=== PATIENT | female | born 1985 | race Caucasian/White ===

== ENCOUNTER 2023-03-31 09:31 | Emergency (ER) | payer OTHER, SELFPAY ==
[2023-03-31 09:32] VITALS: PULSE 82; RESP 16; TEMP 36.3; O2SAT 98; BMI 23.3
--- NOTE | 2023-03-31 09:41 | RAD_ITS ---
EXAM: XR LEFT FOOT COMPLETE, 3 OR MORE VIEWS CLINICAL INDICATION: injury pain swelling TECHNIQUE: Frontal, lateral and oblique views of the left foot. COMPARISON: No relevant prior studies available. FINDINGS: BONES/JOINTS: Acute fracture at the base of the fifth metatarsal. Preservation of the joint space. No sclerotic or destructive changes observed. SOFT TISSUES: Unremarkable. No soft tissue swelling or gas. No radiopaque foreign body. RAD/Foot min 3 Views IMPRESSION: Acute fracture at the base of the left fifth metatarsal. Electronically Signed: Orville Farley MD at 9:53 EST ,
--- NOTE | 2023-03-31 09:58 | EDS_ITS ---
HPI History of Present Illness Chief Complaint: Lower Extremity Injury Detail of Chief Complaint: Injury lateral aspect of left foot Informant: patient Occured/Mechanism Mechanism/Context: Yes injury and Yes blunt trauma Comment: Patient rolled her foot and felt a snap and pop. She was unable to bear weight. Onset/Context/Timing Onset: Hours Context: Sudden Onset Timing: Continuous Quality of Pain: Dull and Throbbing Location: Over the fifth metatarsal left foot Current Severity: Mild Maximum Severity: Severe Worsened by: Weightbearing Relieved by: Nothing Associated Symptoms Associated Symptoms: Positive for Loss of Funtion Narrative Narrative: Patient is a 38-year-old woman who was rushing down the steps because her children wanted open presents. She rolled her foot. She felt a snap pop and had severe pain. She is unable to bear weight. She denies paresthesia, anesthesia motors. She denies prior injury. She has not seen podiatry in the area. Prior similar symptoms: No Recent Illness/Hospitalization: No PFSH PFSH Medical History no medical history no medical history Home Medications hydrocodone-acetaminophen 5-325mg 5mg-325mg 1 tab PO Q6H PRN PRN Pain 3 days #10 TABLETS 03/31/23 [Rx Last Taken Unknown] Allergy/AdvReac Type Severity Reaction Status Date / Time No Known Allergies Allergy Verified 03/31/23 09:32 Surgical History History of Social History (Updated 03/31/23 @ 10:[address] Amrit Moore MD) household members: spouse and children Smoking Status: Never smoker ROS ROS ED Musculoskeletal Musculoskeletal: Reports other Details: Per HPI narrative ; Denies arthralgias, back pain, myalgias or neck pain Integumentary Denies Abrasions or rash Neurologic Neurologic: Reports paresthesias; Denies weakness Hematologic/Lymphatic Hematologic/Lymphatic: Denies easy bleeding Allergic/Immunologic Allergic/Immunologic ED: Denies mouth swelling or tongue swelling EXAM Physical Exam Const Vital Signs: 03/31/23 09:32 Temperature 97.4 F L Temperature Source Temporal Pulse Rate 82 Respiratory Rate 16 Pulse Ox 98 Oxygen Delivery Method Room Air Positive well nourished and well developed General Appearance ED: well developed and NAD HEENT Reports moist mucous membranes normocephalic and atraumatic Eyes PERRL Resp normal respiratory effort Cardio regular rate and regular rhythm Extremity full ROM; Negative for normal to inspection Extremity Narrative: There is swelling discoloration over the base of the fifth metatarsal. There is no pain ovation over the lateral or medial malleolus. There is no pain ovation over the calcaneus. There is no pain the patient over the phalanges or first through fourth metatarsal. DP pulses palpable. Neuro oriented x3, CN's II-XII intact bilaterally, moves all extremities and no sensory deficits noted Sensorium / Orientation: alert Psych mental status grossly normal Skin no wounds Skin Narrative: There is a bruise noted over the base of the fifth metatarsal. Lesions: no lesions MDM MDM MDM Narrative Medical decision making narrative: Based on history and physical concern patient has a fracture. Need to determine if this is a Box or pseudo Box fracture. Radiography Chest X-Ray - ED: Read by ED Physician (Three-view x-ray of the left foot was obtained per nurse protocol and reveals a comminuted fracture which involves the metaphysis of the fifth metatarsal. There is no displaced fragments.) Diagnostic Testing: Clinical Impression(s) from Imaging Studies Foot X-Ray 03/31/23 09:41 IMPRESSION: Acute fracture at the base of the left fifth metatarsal. Electronically Signed: Orville Farley MD at 9:53 EST , Management Discussion w/another healthcare provider: Clinical Research Coordinator (Spoke with Dr. Perkins on-call for podiatry. He requested posterior splint nonweightbearing. Patient was informed of this.) Treatment and Re-Evaluation Narrative: Podiatry was contacted to discuss case and determine if they requested crutches nonweightbearing with postop shoe versus crutches and weight tolerated with walking boot. Procedures Lower Extremity Splints Lower Extremity Splint: Plaster and - (Posterior short leg splint) Splint Fabrication: Fabricated Location: Left Discharge Plan Triage Chief Complaint: Lower Extremity Injury ED Provider: Amrit Moore Dx/Rx/DC Orders Clinical Impression: Closed comminuted fracture of metatarsal bone Prescriptions: New hydrocodone-acetaminophen [hydrocodone-acetaminophen] 5-325 mg tablet 1 tab PO Q6H PRN PRN (Reason: Pain) 3 Days Qty: 10 0RF Primary Care Provider: Care Physician,No Primary Referrals: Chacho Perkins DPM [Med Staff - Active Staff] - 1 Day Care Physician,No Primary [Primary Care Provider] - Activity Restrictions/Additional Instructions: 1. Elevate your toes above your nose for the next several days 2. Keep splint absolutely clean and dry 3. Apply ice 6-10 times a day 4. Take medication as needed for pain. Do not recommend use of NSAIDs. Disposition Disposition: Home, Self Care
== END 2023-03-31 10:31 | disposition home or self-care (01) ==
PROVIDERS: Emergency Provider Emergency Medicine; Visit Provider Emergency Medicine
DX: S92.355A Nondisplaced fracture of fifth metatarsal bone, left foot, initial encounter for closed fracture (principal); X50.1XXA Overexertion from prolonged static or awkward postures, initial encounter
CPT/HCPCS: 29515; 29505; 73630; 99282

== ENCOUNTER 2023-07-02 08:50 | Outpatient (RCR) | payer OTHER, SELFPAY ==
--- NOTE | 2023-07-02 10:29 | HP.PTEVAL_ITS ---
Patient's Visit Information Visit Information Visit Information: TRE YODER is a 38 year old F referred to Physical Therapy by Dr. Chacho Perkins DPM with a diagnosis of 04/15/23 s/p Left ORIF of displaced comminuted fx 5th met base left fo. Date of Evaluation: 07/02/23 Physical Therapist: Palmira Patton DPT Visit Plan Frequency: 1x/Week Duration: 6 Weeks Plan: 1x a week- Given HEP- Follow up PRN HEP Given: seated ankle ROM, gastroc/soleus stretching with towel, SLS, HR/TR seated and standing, seated heel slide, 1/2 kneel stretch for DF, step stretch- edcuated on heel/toe pattern for ambulation Subjective Subjective: Patient reports that she missed the last step on - broke her 5th met on the left foot- had ORIF of displaced comminuted fractured of the 5th met base left foot- Apr [address] Perkins. She progressed from NWB to WBAT in a CAM walk to WBAT in a shoe. She has been a shoe since the 24 of June. She has been consistently in a tennis shoe for a week. She reports that the pain is getting better and its just really stiff and swollen. Worst in the last few days: 3/10 Agg: being up on it, walking, stairs. End of the day its all done. Best: 0/10 currently no pain. Eases: elevation and ice. Pain is located in the 5th met and on the bottom of the foot. Describes the pain as sharp and shooting. The pain does not radiate up the leg. She does not note any N/T. 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 Patient feels like she is back to 75% of normal activities. Sleep: not disturbed. told her to wear a shoe- no insert in shoe- only goes barefoot at this point when getting in/out of the shower. PMHx/Meds: see list scanned in chart from . No current restrictions. did not give her any exercises for it Objective Objective: Posture: good throughout tx session Gait: slightly antalgic- decreased stance and weight shift to the left LE- with poor heel/toe pattern due to decreased DF Observation: incision healing well no s/s of infection noted Sensation: WFL not tender to touch Edema: Figure 8:49 cm Mets: 21.5 Malls: 25 cm 6 below the patella 32.5 cm Palpation: tender along plantar fascia Flex: Gastroc: moderate, Soleus: mild ROM: DF: neutral, PF: 60 degrees, Inver: 30 degrees Ever: 20 degrees Strength: 4+/5 throughout available range SLS: 15 seconds with increased muscle activation and sway HR/TR: able without pain- decreased TR due to lack of ROM secondary to edema Balance/Special Test Scores Lower Extremity Functional Score: 51 Goals Goal 1:: Patient will report participation in home exercise program activities a minimum of 5 days per week, as adjunct to skilled physical therapy intervention in preparation for independent home management upon discharge. Goal Time Frame: 4-6 Weeks Goal 2:: Patient will ambulate >150 feet with a normalized gait pattern Goal Time Frame: 4-6 Weeks Goal 3:: Patient will report 80% improvement Goal Time Frame: 4-6 Weeks Rehabilitation Potential Physical Therapy Diagnosis: Patient has increased edema and decreased LE ROM, strength/stabilization, proprioception, flexibility and muscular endurance leading to abnormal gait and balance. Rehabilitation Potential: Good Anticipated Interventions Patient/Client Instruction: Educate patient on: Benefits of Fitness Program Therapeutic Exercise to Include: Strength training, Endurance training, Balance training, Coordination, Agility training, Body mechanics, Postural training, Flexibilty training, Gait and locomotor training, Passive ROM, Active ROM, Dynamic Lumbar Stabilization and Scapular Strength/Stabilization Text: Thank you for the opportunity to evaluate your patient. For Medicare and Medicare HMO plans, please review the plan of care and approve it. It will need to be FAXED BACK to us at [phone] for Medicare purposes. For Medicare only, by signing this I certify the plan of care. Please let me know if there are questions or concerns regarding this plan of care. Physician Signature: Date:
--- NOTE | 2023-08-26 11:22 | HP.PT.NRP ---
Patient Information Patient Information: TRE YODER was seen in my office for initial evaluation on 07/02/23. The following Plan of Care was established for this patient: POC Established Initial Frequency: 1x/Week Initial Duration: 6 Weeks Anticipated Interventions Patient/Client Instruction: Educate patient on: Benefits of Fitness Program Therapeutic Exercise to Include: Strength training, Endurance training, Balance training, Coordination, Agility training, Body mechanics, Postural training, Flexibilty training, Gait and locomotor training, Passive ROM, Active ROM, Dynamic Lumbar Stabilization and Scapular Strength/Stabilization Last Seen Last Seen: This patient was last seen in our office . Pertinent comments regarding their Physical therapy will appear below: Patient is independent with home exercise program and appropriate to be d/c from PT At this point I will be discontinuing this patient from physical therapy. I would be happy to see this patient again in the future if found appropriate by the physician. Thank you! Palmira Patton, DPT Balance/Gait/Functional tests Balance/Special Test Scores Lower Extremity Functional Score: 51
== END 2023-07-02 19:00 | disposition home or self-care (01) ==
LOC: PT 08:50
PROVIDERS: PCP Family Medicine; Referring Provider Student in an Organized Health Care Education/Training Program; Visit Provider Student in an Organized Health Care Education/Training Program
DX: S92.352D Displaced fracture of fifth metatarsal bone, left foot, subsequent encounter for fracture with routine healing (principal)
CPT/HCPCS: 97162